=== PATIENT | female | born 1950 | race Caucasian/White ===

== ENCOUNTER → 2017-03-28 | Outpatient (CLI) | payer OTHER, SELFPAY ==
[~2017-03-28] MED LIST: CLARITIN10 MG PO; HYDACE5 PO; NAPR550 PO; Pepcid40 MG PO; Prednisone20 MG PO; RXNAPNA550 PO
[2017-03-29 07:40] LABS: Adenovirus F 40/41 Not Detected (NOT DETECT); Astrovirus Not Detected (NOT DETECT); Campylobacter Sp Not Detected (NOT DETECT); Cryptosporidium Not Detected (NOT DETECT); Cyclospora Cayetanensis Not Detected (NOT DETECT); E. Coli O157 Not Detected (NOT DETECT); Entamoeba Histolytica Not Detected (NOT DETECT); Enteroaggregative E. coli-EAEC Not Detected (NOT DETECT); Enteropathogenic E. coli-EPEC Not Detected (NOT DETECT); Enterotoxigenic E. coli-ETEC Not Detected (NOT DETECT); Giardia Lamblia Not Detected (NOT DETECT); Norovirus GI/GII Not Detected (NOT DETECT); Plesiomonas Shigelloides Not Detected (NOT DETECT); Rotavirus A Not Detected (NOT DETECT); Salmonella Sp Not Detected (NOT DETECT); Sapovirus Not Detected (NOT DETECT); Shiga Toxin-prod E. coli-STEC Not Detected (NOT DETECT); Shigella/Enteroin E. coli-EIEC Not Detected (NOT DETECT); Vibrio Cholerae Not Detected (NOT DETECT); Vibrio Sp Not Detected (NOT DETECT); Yersinia Enterocolitica Not Detected (NOT DETECT)
== END ==
LOC: LAB 08:45
PROVIDERS: Internal Medicine
DX: R19.7 Diarrhea, unspecified (principal); K90.0 Celiac disease
CPT/HCPCS: 87507

== ENCOUNTER 2017-12-21 19:23 | Emergency (ER) | payer OTHER, SELFPAY ==
[~2017-12-21] VITALS: Ht 172.7 cm; Wt 73.9 kg
[~2017-12-21 19:23] MED LIST changes: -CLARITIN10 MG PO; -Pepcid40 MG PO; -Prednisone20 MG PO
[2017-12-21] MEDS ORDERED: Pepcid40 MG PO (21:29)
[2017-12-21] MEDS ORDERED: Prednisone20 MG PO (21:29)
[2017-12-21] MEDS ORDERED: CLARITIN10 MG PO (21:29)
== END 2017-12-21 22:30 | disposition home or self-care (01) ==
LOC: ER 19:23
DX: R06.02 Shortness of breath (principal); T50.B95A Adverse effect of other viral vaccines, initial encounter; T50.A95A Adverse effect of other bacterial vaccines, initial encounter; Z88.5 Allergy status to narcotic agent; Z88.7 Allergy status to serum and vaccine
CPT/HCPCS: 94640; 96374; 96375; 99285-25; J1100; J3490

== ENCOUNTER 2023-04-04 17:11 | Emergency (ER) | payer OTHER ==
[~2023-04-04] VITALS: Ht 172.7 cm; Wt 68.0 kg
[~2023-04-04 17:11] MED LIST changes: +CLARITIN10 MG PO; +Pepcid40 MG PO; +Prednisone20 MG PO
[2023-04-04 17:15] VITALS: BP 140/87
[2023-04-04] MEDS ORDERED: ONDA4ODT MM (18:19)
== END 2023-04-04 18:45 | disposition home or self-care (01) ==
LOC: ER 17:11
DX: S06.0X0A Concussion without loss of consciousness, initial encounter (principal); M32.9 Systemic lupus erythematosus, unspecified; Z79.52 Long term (current) use of systemic steroids; Z79.899 Other long term (current) drug therapy; Z88.5 Allergy status to narcotic agent; Z88.7 Allergy status to serum and vaccine; W01.10XA Fall on same level from slipping, tripping and stumbling with subsequent striking against unspecified object, initial encounter
CPT/HCPCS: 70450; 99283-25; A9270